=== PATIENT | male | born 1930 | race Caucasian/White ===

== ENCOUNTER 2017-11-12 20:29 | Emergency (ER) | payer MEDICARE, OTHER ==
[2017-11-12 20:56] VITALS: BP 143/71
[2017-11-12] MEDS ORDERED: Sodium Phosphate ADULT ENEMA* 118 ml bottle ONE ×2 (21:14→21:29)
[2017-11-12] MEDS ORDERED: Sodium Phosphate ADULT ENEMA* 118 ml bottle PR ONE (21:15)
[2017-11-12] MEDS ORDERED: Polyethylene Glycol 3350* 17 GM PACKET PO PRN (21:35)
--- NOTE | 2017-11-12 21:51 | UC ---
Abdominal Pain Male HPI - HPI Summary HPI Summary: Patient is an 87-year-old male presenting to the with chief complaint of constipation 4 days. He states he has traveled back from [place] recently and has not been drinking water. He endorses pain to the rectal area, but denies abdominal pain. He continues to pass gas. Has tried [id number] Metamucil , prune juice and drinking water without relief. He denies any history of constipation. He states he has a bowel movement daily. Last bowel movement 4 days ago, however for the past 3 days he has been passing very small hard stools with pain. He has been hospitalized previously for rectal bleeding which required a transfusion, however he denies any rectal bleeding since that time. Denies any other symptoms or pain. - History of Current Complaint Chief Complaint: UCGI Stated Complaint: BOWEL Time Seen by Provider: 11/12/17 21:03 Hx Obtained From: Patient Onset/Duration: Sudden Onset Timing: Constant Severity Initially: Moderate Severity Currently: Moderate Pain Intensity: 0 Pain Scale Used: 0-10 Numeric Location: Other - rectum Radiates: No Character: Aching Aggravating Factor(s): Nothing Alleviating Factor(s): Nothing Associated Signs And Symptoms: Positive: Constipation - Risk Factors Testicular Torsion: Negative - Allergies/Home Medications Allergies/Adverse Reactions: Allergies Allergy/AdvReac Type Severity Reaction Status Date / Time MS Codeine [Codeine] Allergy Severe Shakes Verified 11/12/17 20:44 Home Medications: Home Medications Docusate Sodium [Colace] 100 mg PO BID 11/12/17 [History Confirmed 11/12/17] Donepezil HCl [Aricept] 5 mg PO DAILY 11/12/17 [History Confirmed 11/12/17] Losartan Potassium 25 mg PO DAILY 11/12/17 [History Confirmed 11/12/17] Magnesium Hydroxide [Milk of Magnesia] 400 mg PO Q12H PRN 11/12/17 [History Confirmed 11/12/17] PMH/Surg Hx/FS Hx/Imm Hx Previously Healthy: Yes - Surgical History Surgical History: Yes Surgery Procedure, Year, and Place: 2006 Defibrillator placed - Battery needs to be replaced but Medicare won't pay for it unless it is an "emergency". - Family History Known Family History: Positive: Unknown - Social History Occupation: Unemployed Lives: With Family Alcohol Use: Daily Alcohol Amount: one day Substance Use Type: None Smoking Status (MU): Never Smoked Tobacco Review of Systems Constitutional: Negative Skin: Negative Respiratory: Negative Cardiovascular: Negative Gastrointestinal: Other - rectal pain Motor: Negative Neurovascular: Negative Musculoskeletal: Negative Neurological: Negative Is Patient Immunocompromised?: No All Other Systems Reviewed And Are Negative: Yes Physical Exam Triage Information Reviewed: Yes Appearance: Well-Appearing, Well-Nourished Vital Signs: Initial Vital Signs Temp 98.4 F 11/12/17 20:43 Pulse 73 11/12/17 20:43 Resp 18 11/12/17 20:43 BP 143/71 11/12/17 20:43 Pulse Ox 97 11/12/17 20:43 Vital Signs Reviewed: Yes Eye Exam: Normal Neck exam: Normal Neck: Positive: Supple Respiratory Exam: Normal Respiratory: Positive: Chest non-tender Abdominal Exam: Normal Abdomen Description: Positive: Nontender, Distended Musculoskeletal Exam: Normal Psychological: Positive: Normal Response To Family Skin Exam: Normal Abd Pain Male Course/Dx - Course Course Of Treatment: During the course of treatment, the patient is evaluated for constipation. Endorses rectal pain with attempting to have a bowel movement. Small hard stools over the past 4 days. He states he has not had a normal bowel movement for over 4 days which was also very hard. Family at bedside state they have been giving him water, Metamucil and prune juice without relief. He has never tried an enema. Fleet enema with success. Large bowel movement obtained. Patient feels much improved. I've given him instructions for Senokot and MiraLAX when needed. He is okay with this plan and discharge. - Differential Dx/Clinical Impression Differential Diagnosis/HQI/PQRI: Constipation Provider Diagnoses: Constipation Discharge - Sign-Out/Discharge Documenting (check all that apply): Discharge/Admit/Transfer - Discharge Plan Condition: Stable Disposition: HOME Patient Education Materials: Constipation (ED) Referrals: Celio Antunez MD [Primary Care Provider] - Additional Instructions: Drink plenty of water Senna tea or capsule nightly If you become constipated, you may always add miralax twice daily - Billing Disposition and Condition Condition: STABLE Disposition: HOME
== END 2017-11-12 21:50 | disposition home or self-care (01) ==
LOC: UCEAST 20:29
DX: K59.00 Constipation, unspecified (principal); Z95.810 Presence of automatic (implantable) cardiac defibrillator; Z88.5 Allergy status to narcotic agent
CPT/HCPCS: 99203; A9270-GY; G0463